=== PATIENT | male | born 1990 | race Caucasian/White ===

== ENCOUNTER 2024-04-25 11:08 | Emergency (ER) | payer OTHER ==
[2024-04-25 11:17] VITALS: BP 159/108; PULSE 68; RESP 20; TEMP 98.1; BMI 25.1
[2024-04-25] MEDS ORDERED: LIDOCAINE 4% PATCH TP ONE (11:56)
[2024-04-25] MEDS ORDERED: METHOCARBAMOL 500 MG TABLET ONE (11:56)
[2024-04-25] MEDS ORDERED: KETOROLAC TROMETHAMINE 30 MG/1 ML VIAL ONE (11:56)
[2024-04-25] MEDS: METHOCARBAMOL 500 MG TABLET PO ONE (12:05)
[2024-04-25] MEDS: KETOROLAC TROMETHAMINE 30 MG/1 ML VIAL IM ONE (12:05)
[2024-04-25] MEDS: LIDOCAINE 4% PATCH TP ONE (12:06)
[2024-04-25] MEDS ORDERED: LIDOCAINE PATCH REMOVAL MC SCH (22:00)
== END 2024-04-25 13:04 | disposition home or self-care (01) ==
LOC: JER 11:08
PROC: 3E0133Z Introduction of Anti-inflammatory into Subcutaneous Tissue, Percutaneous Approach (ICD-10-PCS; principal; 2024-04-25)
DX: M54.2 Cervicalgia (principal)
CPT/HCPCS: 99284-25

== ENCOUNTER 2024-04-27 14:39 | Inpatient (IN) | payer OTHER ==
[2024-04-27 14:55] VITALS: BMI 25.1
[2024-04-27] MEDS ORDERED: ACETAMINOPHEN 500 MG TABLET (FP) ONE (15:34)
[2024-04-27] MEDS ORDERED: LIDOCAINE 4% PATCH TP ONE (15:34)
[2024-04-27] MEDS ORDERED: KETOROLAC TROMETHAMINE 30 MG/1 ML VIAL ONE (15:34)
[2024-04-27] MEDS ORDERED: DEXAMETHASONE SOD PHOSPHATE 10 MG/1 ML VIAL ONE (15:34)
[2024-04-27] MEDS: KETOROLAC TROMETHAMINE 30 MG/1 ML VIAL IM ONE (15:44)
[2024-04-27] MEDS: DEXAMETHASONE SOD PHOSPHATE 10 MG/1 ML VIAL IM ONE (15:45)
[2024-04-27] MEDS: ACETAMINOPHEN 500 MG TABLET (FP) PO ONE (15:45)
[2024-04-27] MEDS: LIDOCAINE 4% PATCH TP ONE (15:45)
[2024-04-27] MEDS ORDERED: morphine SULFATE 4 MG/ML VIAL ONE (17:11)
[2024-04-27] MEDS: morphine CARPU-JECT 4 MG/1 ML DISP.SYRIN IVPUSH ONE (17:16)
[2024-04-27] MEDS ORDERED: ACETAMINOPHEN INJECTION 100 ML ONE (20:29)
[2024-04-27] MEDS: ACETAMINOPHEN 1000 MG/100 ML BAG IVPB PRN (22:54)
[2024-04-27 23:07] LABS: BASO % 0.2 % (0-2.0); HEMATOCRIT 48.1 % (35.4-49); LYMPH % 8.6 % (8-40); MCH 31.2 pg (25.7-33.7); MCHC 33.2 g/dl (32.0-35.9); MEAN CELL VOLUME 93.9 fl (80-96); MEAN PLT VOLUME 10.2 fl (7.5-11.1); MONO % 0.9 % (3.8-10.2); NEUT % 90.3 % (42.8-82.8); PLATELET COUNT 238 10^3/uL (134-434); RBC 5.12 M/mm3 (4.00-5.60); WHITE BLOOD COUNT 6.9 K/mm3 (4.0-10.0)
[2024-04-27 23:28] LABS: POTASSIUM 4.4 mmol/L (3.5-5.1)
[2024-04-27 23:32] LABS: ALBUMIN 4.7 g/dl (3.4-5.0); BLOOD UREA NITROGEN 27.7 mg/dL (7-18); CALCIUM 10.2 mg/dL (8.5-10.1)
[2024-04-27 23:35] LABS: BILIRUBIN,DIRECT 0.2 mg/dL (0.0-0.2)
[2024-04-27 23:37] LABS: BILIRUBIN,TOTAL 0.7 mg/dL (0.2-1)
[2024-04-28] MEDS: LIDOCAINE PATCH REMOVAL MC SCH (00:03)
[2024-04-28] MEDS: oxyCODONE HCL 5 MG TABLET PO ONE (02:36)
[2024-04-28] MEDS: MELATONIN 5 MG TABLETS PO ONE (02:37)
[2024-04-28 09:32] LABS: HEMATOCRIT 43.4 % (35.4-49); MCH 31.7 pg (25.7-33.7); MCHC 34.5 g/dl (32.0-35.9); MEAN CELL VOLUME 91.9 fl (80-96); MEAN PLT VOLUME 10.4 fl (7.5-11.1); PLATELET COUNT 215 10^3/uL (134-434); RBC 4.73 M/mm3 (4.00-5.60); WHITE BLOOD COUNT 7.6 K/mm3 (4.0-10.0)
[2024-04-28 09:54] LABS: POTASSIUM 3.9 mmol/L (3.5-5.1)
[2024-04-28] MEDS: DOCUSATE SODIUM 100 MG CAPSULE (FP) PO SCH (09:56)
[2024-04-28] MEDS: levETIRAcetam 500 MG TABLET (FP) PO SCH (09:56)
[2024-04-28] MEDS: DIVALPROEX SODIUM 500 MG TABLET E.C. PO SCH (09:56)
[2024-04-28] MEDS ORDERED: ENOXAPARIN NA (PORCINE) 40 MG/0.4 ML DISP.SYRIN SQ SCH (10:00)
[2024-04-28 10:08] LABS: ALBUMIN 4.1 g/dl (3.4-5.0)
[2024-04-28 10:10] LABS: BLOOD UREA NITROGEN 29.9 mg/dL (7-18); MAGNESIUM 2.2 mg/dL (1.8-2.4)
[2024-04-28 10:11] LABS: CREATININE 0.9 mg/dL (0.55-1.3)
[2024-04-28 10:13] LABS: BILIRUBIN,TOTAL 0.4 mg/dL (0.2-1)
[2024-04-28] MEDS: NORTRIPTYLINE HCL 25 MG CAPSULE PO SCH (12:14)
[2024-04-28] MEDS: oxyCODONE HCL 5 MG TABLET PO PRN (12:17)
[2024-04-28] MEDS: METHOCARBAMOL 500 MG TABLET PO SCH (13:25)
[2024-04-28] MEDS: HYDROmorphone HCl 2 MG/ML VIAL IVPB ONE (13:26)
[2024-04-28] MEDS: PATIENT'S OWN MEDICATION (NON-FORMULARY) (Cariprazine Hcl [Vraylar] 1.5 MG Capsule) PO SCH (13:43)
[2024-04-28] MEDS: DEXAMETHASONE SOD PHOSPHATE 10 MG/1 ML VIAL IVPUSH ONE (16:10)
[2024-04-29 09:08] LABS: BASO % 0.1 % (0-2.0); EOS % 0.2 % (0-4.5); HEMATOCRIT 43.8 % (35.4-49); HEMOGLOBIN 15.2 GM/dL (11.7-16.9); LYMPH % 20.5 % (8-40); MCHC 34.8 g/dl (32.0-35.9); MEAN CELL VOLUME 91.9 fl (80-96); MEAN PLT VOLUME 10.3 fl (7.5-11.1); MONO % 5.7 % (3.8-10.2); NEUT % 73.5 % (42.8-82.8); PLATELET COUNT 236 10^3/uL (134-434); RBC 4.76 M/mm3 (4.00-5.60); RDW 12.9 % (11.9-15.9); WHITE BLOOD COUNT 8.9 K/mm3 (4.0-10.0)
[2024-04-29 09:11] LABS: ALBUMIN 4.3 g/dl (3.4-5.0); CALCIUM 9.5 mg/dL (8.5-10.1)
[2024-04-29 09:13] LABS: BLOOD UREA NITROGEN 20.9 mg/dL (7-18)
[2024-04-29 09:15] LABS: CREATININE 0.7 mg/dL (0.55-1.3)
[2024-04-29 09:16] LABS: BILIRUBIN,TOTAL 0.8 mg/dL (0.2-1); TOT PROT 7.3 g/dl (6.4-8.2)
[2024-04-29] MEDS: FAMOTIDINE 10 MG TABLET PO SCH (09:59)
[2024-05-01] MEDS ORDERED: levETIRAcetam 250 MG TABLET PO ONE (08:57)
[2024-05-02 09:53] LABS: BASO % 0.5 % (0-2.0); EOS % 3.1 % (0-4.5); HEMATOCRIT 43.4 % (35.4-49); HEMOGLOBIN 15.2 GM/dL (11.7-16.9); LYMPH % 41.5 % (8-40); MCH 31.9 pg (25.7-33.7); MCHC 34.9 g/dl (32.0-35.9); MEAN CELL VOLUME 91.5 fl (80-96); MEAN PLT VOLUME 10.4 fl (7.5-11.1); MONO % 5.8 % (3.8-10.2); NEUT % 49.1 % (42.8-82.8); PLATELET COUNT 176 10^3/uL (134-434); RBC 4.75 M/mm3 (4.00-5.60); RDW 12.9 % (11.9-15.9); WHITE BLOOD COUNT 5.1 K/mm3 (4.0-10.0)
[2024-05-02 10:09] LABS: POTASSIUM 4.3 mmol/L (3.5-5.1)
[2024-05-02 10:13] LABS: CALCIUM 9.1 mg/dL (8.5-10.1)
[2024-05-02 10:14] LABS: BLOOD UREA NITROGEN 13.9 mg/dL (7-18)
[2024-05-02 10:17] LABS: CREATININE 0.8 mg/dL (0.55-1.3)
[2024-05-02] MEDS ORDERED: GENTAMICIN SO4 80 MG/2 ML VIAL ONE (11:02)
[2024-05-02] MEDS ORDERED: THROMBIN (BOVINE) 20,000 UNIT VIAL TP ONE (11:02)
[2024-05-02] MEDS ORDERED: BUPIVACAINE HCL/PF 0.5% (5MG/ML) 10 ML VIAL ONE (11:02)
[2024-05-02] MEDS ORDERED: LIDOCAINE 1%/EPI 1:100000 (20 ML MULTI DOSE VIAL) ONE (11:03)
[2024-05-02] MEDS ORDERED: BUPIVACAINE LIPOSOME/PF (EXPAREL) 266 MG/20 ML VIAL ONE (11:03)
[2024-05-02] MEDS ORDERED: PROPOFOL 40 ML ONE (12:03)
[2024-05-02] MEDS ORDERED: MIDAZOLAM HCL 2 MG/2 ML SINGLE DOSE VIAL ONE (12:04)
[2024-05-02] MEDS ORDERED: ROCURONIUM BROMIDE 50 MG/5 ML SYRINGE ONE ×3 (12:04→13:46)
[2024-05-02] MEDS ORDERED: ceFAZolin SODIUM 1 GM VIAL ONE (13:08)
[2024-05-02] MEDS: VANCOMYCIN 1,000 MG VIAL (RESTRICTED TO ID ONLY) IVPB ONE (13:08)
[2024-05-02] MEDS ORDERED: VANCOMYCIN 1,000 MG VIAL (RESTRICTED TO ID ONLY) ONE (13:08)
[2024-05-02] MEDS: ceFAZolin SODIUM 1 GM VIAL IVPB ONE (13:08)
[2024-05-02] MEDS: HYDROGEN PEROXIDE 473 ML PO ONE (13:10)
[2024-05-02] MEDS: LIDOCAINE 1%/EPI 1:100000 (20 ML MULTI DOSE VIAL) IJ ONE (13:10)
[2024-05-02] MEDS ORDERED: HYDROmorphone HCl 2 MG/ML VIAL ONE (13:11)
[2024-05-02] MEDS: GENTAMICIN SO4 80 MG/2 ML VIAL IVPB ONE (13:13)
[2024-05-02] MEDS ORDERED: ONDANSETRON 4 MG/2 ML VIAL ONE ×2 (13:16→14:16)
[2024-05-02] MEDS ORDERED: DEXAMETHASONE SOD PHOSPHATE 4 MG/1 ML VIAL ONE (13:16)
[2024-05-02] MEDS ORDERED: TRANEXAMIC ACID 1000 MG/10 ML VIAL ONE (13:32)
[2024-05-02] MEDS ORDERED: ACETAMINOPHEN INJECTION 100 ML ONE (13:34)
[2024-05-02] MEDS ORDERED: NEOSTIGMINE METHYLSULFATE 0.5 MG/1 ML - 10 ML MDV ONE (14:09)
[2024-05-02] MEDS ORDERED: GLYCOPYRROLATE 0.2 MG/1 ML VIAL ONE (14:09)
[2024-05-02] MEDS ORDERED: NALOXONE HCL 0.4 MG/ML VIAL ONE (14:33)
[2024-05-02] MEDS ORDERED: ONDANSETRON 4 MG/2 ML VIAL IVPUSH PRN ×2 (14:54→15:09)
[2024-05-02] MEDS ORDERED: oxyCODONE HCL 5 MG TABLET PO PRN ×2 (14:54)
[2024-05-02] MEDS ORDERED: diphenhydrAMINE HCL 25 MG CAPSULE (FP) PO PRN ×2 (14:54→15:09)
[2024-05-02] MEDS: LACTATED RINGERS SOLUTION 1,000 ML/1,000 ML INFUS.BAG IV SCH ×2 (16:40→19:34)
[2024-05-02] MEDS ORDERED: CEFAZOLIN 1 GM in DEXTROSE 5%-WATER - 50 ML IVPB SCH (18:00)
[2024-05-02] MEDS: oxyCODONE HCL 5 MG TABLET PO PRN (18:55)
[2024-05-02] MEDS: HEPARIN NA (PORCINE) 5,000 UNITS/ML 1ML VIAL SQ SCH ×2 (19:34→21:17)
[2024-05-02] MEDS: DIVALPROEX SODIUM 500 MG TABLET E.C. PO SCH (21:16)
[2024-05-02] MEDS: levETIRAcetam 500 MG TABLET (FP) PO SCH (21:17)
[2024-05-02] MEDS: METHOCARBAMOL 500 MG TABLET PO SCH (21:17)
[2024-05-02] MEDS: LIDOCAINE PATCH REMOVAL MC SCH (21:19)
[2024-05-02] MEDS: CEFAZOLIN 1 GM in DEXTROSE 5%-WATER - 50 ML IVPB SCH (21:29)
[2024-05-02] MEDS: NORTRIPTYLINE HCL 25 MG CAPSULE PO SCH (22:25)
[2024-05-03 08:51] LABS: HEMATOCRIT 41.5 % (35.4-49); HEMOGLOBIN 13.9 GM/dL (11.7-16.9); MCH 31.4 pg (25.7-33.7); MCHC 33.6 g/dl (32.0-35.9); MEAN CELL VOLUME 93.5 fl (80-96); MEAN PLT VOLUME 10.5 fl (7.5-11.1); PLATELET COUNT 160 10^3/uL (134-434); RBC 4.44 M/mm3 (4.00-5.60); RDW 12.9 % (11.9-15.9); WHITE BLOOD COUNT 7.6 K/mm3 (4.0-10.0)
[2024-05-03 09:15] LABS: POTASSIUM 4.3 mmol/L (3.5-5.1)
[2024-05-03] MEDS: DOCUSATE SODIUM 100 MG CAPSULE (FP) PO SCH (09:16)
[2024-05-03] MEDS: FAMOTIDINE 10 MG TABLET PO SCH (09:16)
[2024-05-03 09:17] LABS: CALCIUM 9.1 mg/dL (8.5-10.1)
[2024-05-03 09:18] LABS: BLOOD UREA NITROGEN 10.4 mg/dL (7-18)
[2024-05-03 09:21] LABS: CREATININE 0.8 mg/dL (0.55-1.3)
[2024-05-03] MEDS: CARIPRAZINE HCL 1.5 MG PO SCH (09:47)
[2024-05-03] MEDS: QUEtiapine FUMARATE 25 MG TABLET PO ONE (20:52)
[2024-05-04] MEDS ORDERED: POLYETHYLENE GLYCOL (HEALTHYLAX) 3350 17 GM PACKET PO PRN (07:42)
[2024-05-04 14:08] VITALS: BP 130/85; PULSE 100; RESP 18; TEMP 97.7
== END 2024-05-04 12:58 | disposition home or self-care (01) | DRG 473 ==
LOC: JER 14:39 → JERBED 19:40 → OBSVTOIN 19:40 → J7W 23:07 → J8W 05-02 16:46
PROVIDERS: ADMIT Internal Medicine; ATTEND Nurse Practitioner
PROC: 0PB30ZZ Excision of Cervical Vertebra, Open Approach (ICD-10-PCS; 2024-05-02)
PROC: 01N10ZZ Release Cervical Nerve, Open Approach (ICD-10-PCS; 2024-05-02)
PROC: 4A1004G Monitoring of Central Nervous Electrical Activity, Intraoperative, Open Approach (ICD-10-PCS; 2024-05-02)
PROC: 0RG20A0 Fusion of 2 or more Cervical Vertebral Joints with Interbody Fusion Device, Anterior Approach, Anterior Column, Open Approach (ICD-10-PCS; principal; 2024-05-02 13:00)
DX: M50.222 Other cervical disc displacement at C5-C6 level (principal); M47.892 Other spondylosis, cervical region; M48.02 Spinal stenosis, cervical region; M40.292 Other kyphosis, cervical region; G40.909 Epilepsy, unspecified, not intractable, without status epilepticus; F90.9 Attention-deficit hyperactivity disorder, unspecified type; F31.9 Bipolar disorder, unspecified
CPT/HCPCS: 36415; 72125-TC; 72141-TC; 76000-TC-FY; 80048; 80053; 80076; 83735; 84100; 85025; 85027; 85651; 86140; 88304-TC; 93005; 93010; 94760; 97116-GP; 97161-GP; 99285-25; C1713; J0131; J1100; J1644

== ENCOUNTER 2024-12-24 18:09 | Inpatient (IN) | payer OTHER ==
[2024-12-24 18:16] VITALS: BMI 26.5
[2024-12-24] MEDS ORDERED: ACETAMINOPHEN 500 MG TABLET (FP) ONE (19:51)
[2024-12-24 20:52] LABS: HEMOGLOBIN 14.5 g/dL (13.7-17.5); MCHC 33.7 g/dl (32.3-36.5); MEAN CELL VOLUME 91.9 fl (79.0-92.2); MEAN PLT VOLUME 12.5 fl (9.4-12.4); PLATELET COUNT 190 x10^3/uL (163-337); RDW 12.2 % (12.0-15.6)
[2024-12-24 21:13] LABS: ACTIVATED PTT 28.5 SECONDS (25.2-36.5)
[2024-12-24 21:31] LABS: POTASSIUM 3.9 mmol/L (3.5-5.1)
[2024-12-24 21:34] LABS: ALBUMIN 3.8 g/dl (3.4-5.0); CALCIUM 9.7 mg/dL (8.5-10.1)
[2024-12-24 21:38] LABS: CREATININE 0.9 mg/dL (0.55-1.3)
[2024-12-24 21:39] LABS: BILIRUBIN,TOTAL 0.2 mg/dL (0.2-1); TOT PROT 6.5 g/dl (6.4-8.2)
[2024-12-24] MEDS: ACETAMINOPHEN 500 MG TABLET (FP) PO ONE (21:58)
[2024-12-24] MEDS ORDERED: oxyCODONE HCL 5 MG TABLET ONE (22:15)
[2024-12-24] MEDS ORDERED: levETIRAcetam 500 MG TABLET (FP) PO ONE (22:15)
[2024-12-24] MEDS ORDERED: CycloBENZAprine HCL 5 MG TABLET ONE (22:15)
[2024-12-24] MEDS: levETIRAcetam 500 MG TABLET (FP) PO ONE (22:24)
[2024-12-24] MEDS: CycloBENZAprine HCL 10 MG TABLET (FP) PO ONE (22:24)
[2024-12-24] MEDS: oxyCODONE HCL 5 MG TABLET PO ONE (22:24)
[2024-12-25] MEDS ORDERED: morphine SULFATE 4 MG/ML VIAL IVPUSH PRN (02:00)
[2024-12-25] MEDS: oxyCODONE HCL 5 MG TABLET PO PRN ×2 (03:48→18:27)
[2024-12-25 08:56] LABS: ABSOLUTE IMMATURE GRANULOCYTES 0.01 x10^3/uL (0.0-0.031); BASOPHILS # 0.03 x10^3/uL (0.01-0.08); EOSINOPHIL % 8.3 % (0.8-7.0); EOSINOPHILS # 0.44 x10^3/uL (0.04-0.54); HEMATOCRIT 44.7 % (40.1-51.0); MCHC 33.6 g/dl (32.3-36.5); MEAN CELL VOLUME 93.1 fl (79.0-92.2); MEAN PLT VOLUME 12.5 fl (9.4-12.4); MONOCYTE % 7.5 % (5.3-12.2); PLATELET COUNT 177 x10^3/uL (163-337); RDW 12.1 % (12.0-15.6)
[2024-12-25] MEDS: levETIRAcetam 500 MG TABLET (FP) PO SCH (09:05)
[2024-12-25] MEDS: oxyCODONE HCL 5 MG TABLET PO ONE (09:06)
[2024-12-25 09:27] LABS: INR 0.99 (0.83-1.09); PROTHROMBIN TIME (PATIENT) 10.8 SEC (9.7-13.0)
[2024-12-25 09:27] LABS: POTASSIUM 3.9 mmol/L (3.5-5.1)
[2024-12-25 09:32] LABS: ALBUMIN 3.6 g/dl (3.4-5.0); BLOOD UREA NITROGEN 21.8 mg/dL (7-18); CALCIUM 9.6 mg/dL (8.5-10.1); MAGNESIUM 1.8 mg/dL (1.8-2.4)
[2024-12-25 09:34] LABS: CREATININE 0.8 mg/dL (0.55-1.3)
[2024-12-25 09:36] LABS: BILIRUBIN,TOTAL 0.3 mg/dL (0.2-1); PHOSPHOROUS 3.9 mg/dL (2.5-4.9); TOT PROT 6.3 g/dl (6.4-8.2)
[2024-12-25] MEDS ORDERED: GENTAMICIN SO4 80 MG/2 ML VIAL ONE (09:40)
[2024-12-25] MEDS ORDERED: BUPIVACAINE HCL/PF 0.5% (5MG/ML) 10 ML VIAL ONE (09:40)
[2024-12-25] MEDS ORDERED: THROMBIN (BOVINE) 20,000 UNIT VIAL TP ONE (09:40)
[2024-12-25] MEDS ORDERED: LIDOCAINE 1%/EPI 1:100000 (20 ML MULTI DOSE VIAL) ONE ×2 (09:41→11:01)
[2024-12-25] MEDS ORDERED: BUPIVACAINE LIPOSOME/PF (EXPAREL) 266 MG/20 ML VIAL ONE (09:41)
[2024-12-25] MEDS ORDERED: BACITRACIN ZINC 15 GM TUBE TOPICAL OINTMENT ONE (09:44)
[2024-12-25] MEDS ORDERED: PROPOFOL 40 ML ONE ×2 (11:15→13:36)
[2024-12-25] MEDS ORDERED: SUCCINYLCHOLINE CHLORIDE 200 MG/10 ML SYRINGE ONE (11:16)
[2024-12-25] MEDS ORDERED: PROPOFOL 20 ML ONE ×3 (11:18→14:57)
[2024-12-25] MEDS ORDERED: KETAMINE HCL 200 MG/20 ML VIAL ONE (11:19)
[2024-12-25] MEDS ORDERED: MIDAZOLAM HCL 2 MG/2 ML SINGLE DOSE VIAL ONE (11:44)
[2024-12-25] MEDS ORDERED: HYDROmorphone HCl 2 MG/ML VIAL ONE ×2 (11:44→15:01)
[2024-12-25] MEDS: VANCOMYCIN 1,000 MG VIAL (RESTRICTED TO ID ONLY) IVPB ONE (12:00)
[2024-12-25] MEDS: ceFAZolin SODIUM 1 GM VIAL IVPB ONE (12:00)
[2024-12-25] MEDS: LIDOCAINE 1%/EPI 1:100000 (50 ML MULTI DOSE VIAL) INF ONE (12:34)
[2024-12-25] MEDS: THROMBIN (BOVINE) 20,000 UNIT VIAL TP ONE (12:35)
[2024-12-25] MEDS ORDERED: ROCURONIUM BROMIDE 50 MG/5 ML SYRINGE ONE (14:34)
[2024-12-25] MEDS ORDERED: LIDOCAINE HCL 2% JELLY 6 ML TP ONE (14:35)
[2024-12-25] MEDS ORDERED: SUGAMMADEX SODIUM 200 MG/2 ML VIAL ONE (14:56)
[2024-12-25] MEDS ORDERED: ACETAMINOPHEN INJECTION 100 ML ONE (15:01)
[2024-12-25] MEDS ORDERED: ONDANSETRON 4 MG/2 ML VIAL ONE (15:20)
[2024-12-25] MEDS ORDERED: diphenhydrAMINE HCL 25 MG CAPSULE (FP) PO PRN (15:59)
[2024-12-25] MEDS ORDERED: ONDANSETRON 4 MG/2 ML VIAL IVPUSH PRN (15:59)
[2024-12-25] MEDS ORDERED: oxyCODONE HCL 5 MG TABLET PO PRN (15:59)
[2024-12-25] MEDS: LACTATED RINGERS SOLUTION 1,000 ML/1,000 ML INFUS.BAG IV SCH (16:26)
[2024-12-25] MEDS: CEFAZOLIN 1 GM/D5W 1 GM/50 ML BAG IVPB SCH (18:28)
[2024-12-25] MEDS: PATIENT'S OWN MEDICATION (NON-FORMULARY) (Cariprazine Hcl [Vraylar] 1.5 MG Capsule) PO SCH (18:38)
[2024-12-25] MEDS: morphine SULFATE 4 MG/ML VIAL IVPUSH PRN (18:48)
[2024-12-25] MEDS: ACETAMINOPHEN 1000 MG/100 ML BAG IVPB PRN (19:41)
[2024-12-25] MEDS: HYDROmorphone HCL CARPU-JECT 2 MG/1 ML DISP.SYRIN IVPUSH ONE (20:56)
[2024-12-25] MEDS: HEPARIN NA (PORCINE) 5,000 UNITS/ML 1ML VIAL SQ SCH (21:21)
[2024-12-25] MEDS: DOCUSATE SODIUM 100 MG CAPSULE (FP) PO SCH (21:22)
[2024-12-26] MEDS: HYDROmorphone HCL CARPU-JECT 2 MG/1 ML DISP.SYRIN IVPB ONE (02:58)
[2024-12-26] MEDS: KETOROLAC TROMETHAMINE 15 MG/ML VIAL IVPUSH ONE (02:59)
[2024-12-26 08:02] LABS: HEMATOCRIT 42.4 % (40.1-51.0); HEMOGLOBIN 14.1 g/dL (13.7-17.5); MCHC 33.3 g/dl (32.3-36.5); MEAN PLT VOLUME 12.6 fl (9.4-12.4); PLATELET COUNT 178 x10^3/uL (163-337); RDW 12.1 % (12.0-15.6)
[2024-12-26 08:20] LABS: BLOOD UREA NITROGEN 11.8 mg/dL (7-18); CALCIUM 9.4 mg/dL (8.5-10.1)
[2024-12-26 08:24] LABS: CREATININE 0.7 mg/dL (0.55-1.3)
[2024-12-26] MEDS: FERROUS SO4 325 MG TABLET (FP) PO SCH (09:15)
[2024-12-26] MEDS: FOLIC ACID 1 MG TABLET (FP) PO SCH (09:15)
[2024-12-26] MEDS: HYDROmorphone HCL CARPU-JECT 2 MG/1 ML DISP.SYRIN IVPB PRN (10:25)
[2024-12-26] MEDS: oxyCODONE HCL 5 MG TABLET PO PRN ×2 (11:44→14:45)
[2024-12-27] MEDS: KETOROLAC TROMETHAMINE 15 MG/ML VIAL IVPUSH ONE (00:17)
[2024-12-27 08:25] LABS: ABSOLUTE IMMATURE GRANULOCYTES 0.01 x10^3/uL (0.0-0.031); BASOPHILS # 0.04 x10^3/uL (0.01-0.08); EOSINOPHIL % 3.3 % (0.8-7.0); EOSINOPHILS # 0.22 x10^3/uL (0.04-0.54); HEMATOCRIT 40.1 % (40.1-51.0); HEMOGLOBIN 13.2 g/dL (13.7-17.5); MCHC 32.9 g/dl (32.3-36.5); MEAN CELL VOLUME 95.7 fl (79.0-92.2); MEAN PLT VOLUME 12.4 fl (9.4-12.4); MONOCYTE % 7.5 % (5.3-12.2); PLATELET COUNT 145 x10^3/uL (163-337); RDW 12.3 % (12.0-15.6)
[2024-12-27 08:52] LABS: POTASSIUM 4.1 mmol/L (3.5-5.1)
[2024-12-27 08:59] LABS: ALBUMIN 3.5 g/dl (3.4-5.0); CALCIUM 9.3 mg/dL (8.5-10.1)
[2024-12-27 09:00] LABS: BLOOD UREA NITROGEN 9.2 mg/dL (7-18); MAGNESIUM 1.7 mg/dL (1.8-2.4)
[2024-12-27 09:03] LABS: CREATININE 0.7 mg/dL (0.55-1.3)
[2024-12-27 09:04] LABS: BILIRUBIN,TOTAL 0.9 mg/dL (0.2-1); TOT PROT 6.2 g/dl (6.4-8.2)
[2024-12-27] MEDS: PATIENT'S OWN MEDICATION (NON-FORMULARY) (Cariprazine Hcl [Vraylar] 3 MG Capsule) PO SCH (09:24)
[2024-12-27] MEDS: MAGNESIUM 2GM/50ML STERILE WATER IVPB IVPB ONE (12:52)
[2024-12-28 06:56] VITALS: RESP 18
[2024-12-28 08:32] LABS: ABSOLUTE IMMATURE GRANULOCYTES 0.02 x10^3/uL (0.0-0.031); BASOPHILS # 0.03 x10^3/uL (0.01-0.08); EOSINOPHIL % 1.8 % (0.8-7.0); EOSINOPHILS # 0.12 x10^3/uL (0.04-0.54); HEMATOCRIT 43.5 % (40.1-51.0); HEMOGLOBIN 14.3 g/dL (13.7-17.5); MCHC 32.9 g/dl (32.3-36.5); MEAN CELL VOLUME 94.6 fl (79.0-92.2); MEAN PLT VOLUME 12.6 fl (9.4-12.4); MONOCYTE % 7.7 % (5.3-12.2); PLATELET COUNT 182 x10^3/uL (163-337); RDW 12.1 % (12.0-15.6)
[2024-12-28 08:49] LABS: POTASSIUM 4.4 mmol/L (3.5-5.1)
[2024-12-28 08:50] LABS: ALBUMIN 3.8 g/dl (3.4-5.0); BLOOD UREA NITROGEN 11.9 mg/dL (7-18); CALCIUM 10.3 mg/dL (8.5-10.1)
[2024-12-28 08:53] LABS: CREATININE 0.6 mg/dL (0.55-1.3)
[2024-12-28 08:56] LABS: BILIRUBIN,TOTAL 1.3 mg/dL (0.2-1)
[2024-12-28 09:30] VITALS: BP 142/86; PULSE 72; TEMP 97.3
== END 2024-12-28 12:16 | disposition home or self-care (01) | DRG 473 ==
LOC: JER 18:09 → JERBED 21:42 → J5S 23:41 → J8W 12-25 18:19
PROVIDERS: ADMIT Internal Medicine
PROC: 01N10ZZ Release Cervical Nerve, Open Approach (ICD-10-PCS; 2024-12-25)
PROC: 0RP10AZ Removal of Interbody Fusion Device from Cervical Vertebral Joint, Open Approach (ICD-10-PCS; 2024-12-25)
PROC: 4A1004G Monitoring of Central Nervous Electrical Activity, Intraoperative, Open Approach (ICD-10-PCS; 2024-12-25)
PROC: 0RG20A0 Fusion of 2 or more Cervical Vertebral Joints with Interbody Fusion Device, Anterior Approach, Anterior Column, Open Approach (ICD-10-PCS; principal; 2024-12-25 11:30)
PROC: 0PB30ZZ Excision of Cervical Vertebra, Open Approach (ICD-10-PCS; 2024-12-25 11:30)
DX: M50.122 Cervical disc disorder at C5-C6 level with radiculopathy (principal); M47.892 Other spondylosis, cervical region; G89.18 Other acute postprocedural pain; F31.9 Bipolar disorder, unspecified; G40.909 Epilepsy, unspecified, not intractable, without status epilepticus; R74.01 Elevation of levels of liver transaminase levels
CPT/HCPCS: 36415; 71046-TC-FY; 72125-TC; 76000-TC-FY; 80048; 80053; 80164; 80177; 83735; 84100; 85025; 85027; 85610; 85730; 86850; 86900; 86901; 93005; 93010; 94760; 97116-GP; 97161-GP; 99285-25; C1713; J0666